=== PATIENT | male | born 1965 | race Caucasian/White ===

== ENCOUNTER 2020-12-30 17:30 | Emergency (ER) | payer OTHER, SELFPAY ==
--- NOTE | ~2020-12-30 | XR_ITS ---
EXAMINATION: XR hip LT min 2V DATE: 12/30/2020 18:19 INDICATION: 2 months of left hip pain TECHNIQUE: Anteroposterior and frog-leg lateral views of the left hip were obtained. COMPARISON: None. FINDINGS: Bone alignment is normal. No fracture or suspected avascular necrosis. Osteoarthritis at the left hip with severe nonuniform joint space narrowing at the superolateral aspect of the joint space and with hypertrophic marginal osteophytes along the rim of the acetabulum along the margins of the femoral h ead. There is decreased anterosuperior femoral head neck offset which can predispose towards cam-type femoral acetabular impingement. Moderate lower lumbar spondylosis. IMPRESSION: 1. Severe left hip osteoarthritis. No acute osseous abnormality. Reviewed, dictated and finalized at location A.
--- NOTE | 2020-12-30 17:38 | ED.LOWEXIN ---
HPI - Extremity Injury (Lower) General Chief Complaint: Extremity Injury, Lower Stated Complaint: Left Hip pain, pain and swollen Knees and Ankles Time Seen by Provider: 12/30/20 17:38 Source: patient and RN notes reviewed History of Present Illness HPI Narrative: Patient is a 55-year-old male who presents the urgent care with complaints of left hip pain for the last 2 months without any injury. Patient states he is also been having chronic swelling to the bilateral lower legs/ankles. Patient states that his doctor recently changed his medication and put him on lisinopril/HCTZ. Patient states that the right lower leg has continued to swell over the last 4 days causing him extreme pain. Patient states that he missed his appointment with his surgeon regarding his left hip pain due to a court date and is really needing a left hip x-ray . Patient denies of any increase in his chronic shortness of breath. Denies of any chest pain. Patient states that he has been taking Tylenol and ibuprofen for his pain. Denies of any history of DVT. No other acute complaints. No acute distress noted. Patient aware of the plan of care. Some parts of this dictation were generated by voice recognition software and may contain typographical and/or grammatical inaccuracies. Related Data Home Medications Medication Instructions Recorded Confirmed diclofenac sodium 75 mg PO TID 12/30/20 12/30/20 lisinopril-hydrochlorothiazide 1 tablet PO DAILY 12/30/20 12/30/20 pravastatin 20 mg PO DAILY 12/30/20 12/30/20 sumatriptan succinate 25 mg PO DAILY PRN 12/30/20 12/30/20 topiramate 50 mg PO BID 12/30/20 12/30/20 Allergies Allergy/AdvReac Type Severity Reaction Status Date / Time No Known Allergies Allergy Mild Verified 12/30/20 17:44 Review of Systems Review of Systems: CONSTITUTIONAL: Denies fever, chills, or sweats. EYES: Denies visual changes, redness, or discharge. ENT: Denies rhinorrhea, congestion, sore throat, or otalgia. CARDIOVASCULAR: Denies chest pain, palpitations, or edema. RESPIRATORY: Denies cough or dyspnea. GASTROINTESTINAL: Denies abdominal pain, nausea, vomiting, or diarrhea. GENITOURINARY: Denies dysuria or hematuria. SKIN: Denies rash or itching. MUSCULOSKELETAL: Reports of left hip pain and bilateral lower leg swelling NEUROLOGIC: Denies headache, numbness, or weakness. All other systems reviewed are negative, except as documented in HPI. PMFSH Comments At the time of my signature, I reviewed and agree with the nursing past medical, surgical, social, and family history. There is no relevant family history pertinent to the patient complaint. Exam Narrative: GENERAL: This is a well-nourished, well-developed patient, in no apparent distress. HEAD: normocephalic, atraumatic. EYES: PERRL. Sclera clear/white. Vision is grossly intact. EARS: External ears normal NOSE: External nose normal with no obvious nasal discharge, nares without redness, no rhinorrhea. THROAT: Mucous membranes moist NECK: Neck supple CARDIOVASCULAR: Regular rate and rhythm without murmurs, gallops, or rubs. RESPIRATORY: Clear to auscultation. Breath sounds equal bilaterally. No wheezes, rales, or rhonchi. SKIN: warm, intact with no suspicious lesions or rash, good texture and turgor. NEURO: awake, alert, and oriented to person, place and time. There were no obvious focal neurologic abnormalities. EXTREMITIES: 1+ pitting edema to left lower extremity. 3+ pitting edema to right lower extremity with positive Homans' sign on the right. Right calf measuring 17 inches and left calf measuring 15.5 inches positive bilateral pedal pulses with capillary refill less than 2 seconds. Range of motion to left hip not tested due to pain but obvious difficulty on ambulation/weightbearing Course Vital Signs Vital signs: Vital Signs Temperature 98.1 F 12/30/20 17:40 Pulse Rate 104 H 12/30/20 17:40 Respiratory Rate 26 H 12/30/20 17:40 Blood Pressure 159/94 H
[2020-12-30 17:40] VITALS: BP 159/94; PULSE 104; RESP 26; TEMP 36.7; O2SAT 98
[2020-12-30 18:04] VITALS: BP 159/94; PULSE 104; RESP 26; TEMP 36.7; O2SAT 98
== END 2020-12-30 19:03 | disposition short-term general hospital (02) ==
PROVIDERS: Emergency Provider Nurse Practitioner Family
DX: M79.89 Other specified soft tissue disorders (principal); M16.12 Unilateral primary osteoarthritis, left hip; E78.00 Pure hypercholesterolemia, unspecified; I10 Essential (primary) hypertension; I25.2 Old myocardial infarction
CPT/HCPCS: 73502; 99213; G0463